=== PATIENT | male | born 1975 | race Hispanic/Latino ===

== ENCOUNTER 2022-11-27 16:41 | Emergency (ER) | payer OTHER ==
[~2022-11-27] VITALS: Ht 149.9 cm; Wt 72.6 kg
[2022-11-27] MEDS ORDERED: KETOROLAC 60 MG VIAL (30MG/ML) IM ONE (17:00)
[2022-11-27] MEDS ORDERED: IBUP-2071 PO (17:03)
[2022-11-27 17:57] VITALS: BP 135/72
== END 2022-11-27 17:45 | disposition home or self-care (01) ==
LOC: EDH 16:41
DX: S39.011A Strain of muscle, fascia and tendon of abdomen, initial encounter (principal); K42.9 Umbilical hernia without obstruction or gangrene; Z90.89 Acquired absence of other organs; X50.0XXA Overexertion from strenuous movement or load, initial encounter; Y93.89 Activity, other specified; Y92.89 Other specified places as the place of occurrence of the external cause; Y99.8 Other external cause status
CPT/HCPCS: 99283; 96372; J1885